=== PATIENT | female | born 1955 | race Caucasian/White ===

== ENCOUNTER 2020-06-27 13:04 | Emergency (ER) | payer OTHER ==
[2020-06-27] MEDS ORDERED: Sodium Chloride 0.9% 2.5 ML Syringe FLUSH PRN (13:43)
[2020-06-27] MEDS ORDERED: Sodium Chloride 0.9% 10 ML Syringe FLUSH PRN (13:43)
--- NOTE | 2020-06-27 13:47 | EDM.PDOC ---
ED HPI GENERAL MEDICAL PROBLEM - General Chief Complaint: Respiratory Problem Stated Complaint: SICK COUGHING SOB HEADACHES Time Seen by Provider: 06/27/20 13:23 - History of Present Illness INITIAL COMMENTS - FREE TEXT/NARRATIVE: 64-year-old female history of CABG in the past presenting with 1 week of myalgias fatigue cough shortness of breath and diarrhea. Symptoms are constant and stable without alleviating factors radiation or associated symptoms. denies pain Pain Score (Numeric/FACES): 0 - Related Data Allergies Allergy/AdvReac Type Severity Reaction Status Date / Time No Known Allergies Allergy Verified 06/27/20 13:48 Home Meds: Home Meds Metoprolol Succinate [Toprol XL] 12.5 tab PO BID 06/27/20 [History] atorvaSTATin [Lipitor] 20 PO DAILY 06/27/20 [History] ED ROS GENERAL - Review of Systems Review Of Systems: See Below Free Text/Narrative/Comment: General: Per HPI Skin: No rash. Eyes: No vision problems. ENT: No sore throat. Neck: No neck stiffness. Respiratory: Per HPI Cardiac: No chest pain. Gastrointestinal: Per HPI. Urinary: No dysuria. Musculoskeletal: No myalgias/arthralgias. Neurologic: No headache. ED EXAM, GENERAL - Physical Exam Exam: See Below Free Text/Narrative:: General Appearance: No acute distress, appears comfortable Skin: No rash HEENT: Normocephalic/atraumatic, sclera anicteric, mucous membranes moist Neck: Normal range of motion Chest and Lungs: Bilateral breath sounds, clear to auscultation with normal breathing, expiratory wheezing with coughing Cardiovascular: Regular rate and rhythm, no murmur Abdomen: Soft, non-tender Back: Normal Musculoskeletal: No edema or tenderness Neurologic: Awake, alert, no obvious deficits, moving all extremities Psychiatric: Appropriate, cooperative #1 Interpretation EKG Date: 06/27/20 Time: 15:00 EKG Interpretation Comments: Sinus rhythm with a rate of 68 diffuse T wave flattening no ST elevation depression or elevation no clear findings of acute ischemia. QTC prolonged at 660 Course - Vital Signs Last Recorded V/S: Last Vital Signs Temp 97.5 F 06/27/20 13:41 Pulse 78 06/27/20 13:41 Resp 18 06/27/20 13:41 BP 131/85 06/27/20 13:41 Pulse Ox 95 06/27/20 13:41 - Orders/Labs/Meds Orders: Active Orders 24 hr Category Date Time Status EKG Documentation Completion [RC] STAT Care 06/27/20 13:44 Active Sodium Chloride 0.9% [Saline Flush] Med 06/27/20 13:43 Active 10 ml FLUSH ASDIRECTED PRN Sodium Chloride 0.9% [Saline Flush] Med 06/27/20 13:43 Active 2.5 ml FLUSH ASDIRECTED PRN Saline Lock Insert [OM.PC] Stat Oth 06/27/20 13:43 Ordered Medication Orders Sodium Chloride (Sodium Chloride 0.9% 10 Ml Syringe) 10 ml FLUSH ASDIRECTED PRN PRN Reason: Keep Vein Open Sodium Chloride (Sodium Chloride 0.9% 2.5 Ml Syringe) 2.5 ml FLUSH ASDIRECTED PRN PRN Reason: Keep Vein Open Labs: Laboratory Tests 06/27/20 06/27/20 06/27/20 Range/Units 15:21 16:14 16:14 WBC 7.63 (4.0-11.0) K/uL RBC 4.39 (4.30-5.90) M/uL Hgb 13.7 (12.0-16.0) g/dL Hct 40.7 (36.0-46.0) % MCV 92.7 (80.0-98.0) fL MCH 31.2 (27.0-32.0) pg MCHC 33.7 (31.0-37.0) g/dL RDW Std Deviation 43.9 (28.0-62.0) fl RDW Coeff of Elvira 13 (11.0-15.0) % Plt Count 321 (150-400) K/uL MPV 9.90 (7.40-12.00) fL Neut % (Auto) 63.6 (48.0-80.0) % Lymph % (Auto) 27.0 (16.0-40.0) % [place] % (Auto) 8.9 (0.0-15.0) % Eos % (Auto) 0.4 (0.0-7.0) % Baso % (Auto) 0.1 (0.0-1.5) % Neut # (Auto) 4.9 (1.4-5.7) K/uL Lymph # (Auto) 2.1 (0.6-2.4) K/uL [place] # (Auto) 0.7 (0.0-0.8) K/uL Eos # (Auto) 0.0 (0.0-0.7) K/uL Baso # (Auto) 0.0 (0.0-0.1) K/uL Nucleated RBC % 0.0 /100WBC Nucleated RBCs # 0 K/uL Sodium 141 (136-145) mmol/L Potassium 3.7 (3.5-5.1) mmol/L Chloride 102 (98-107) mmol/L Carbon Dioxide 26.7 (21.0-32.0) mmol/L BUN 12 (7.0-18.0) mg/dL Creatinine 1.0 (0.6-1.0) mg/dL Est Cr Clr Drug Dosing 41.36 mL/min Estimated GFR (MDRD) 56.0 ml/min Glucose 103 (74-106) mg/dL Calcium 9.0 (8.5-10.1) mg/dL Total Bilirubin 0.5 (0.2-1.0) mg/dL AST 25 (15-37) IU/L ALT 22 (14-63) IU/L Alkaline Phosphatase 73 (46-116) U/L Troponin I < 0.050 (0.000-0.056) ng/mL Total Protein 7.8 (6.4-8.2) g/dL Albumin 3.6 (3.4-5.0) g/dL Globulin 4.2 H (2.6-4.0) g/dL Albumin/Globulin Ratio 0.9 (0.9-1.6) Influenza Type A RNA NEGATIVE (NEGATIVE) Influenza Type B RNA NEGATIVE (NEGATIVE) SARS-CoV-2 RNA (EVERETTE) POSITIVE H (NEGATIVE) Meds: Medications Generic Name Dose Route Start Last Admin Trade Name Freq PRN Reason Stop Dose Admin Sodium Chloride 10 ml 06/27/20 13:43 Sodium Chloride 0.9% 10 Ml Syringe FLUSH ASDIRECTED PRN Keep Vein Open Sodium Chloride 2.5 ml 06/27/20 13:43 Sodium Chloride 0.9% 2.5 Ml Syringe FLUSH ASDIRECTED PRN Keep Vein Open Discontinued Medications Generic Name Dose Route Start Last Admin Trade Name Freq PRN Reason Stop Dose Admin Albuterol Confirm 06/27/20 13:50 06/27/20 14:00 Albuterol 8 Gm Inhaler Administered 06/27/20 13:51 4 puff Dose Administration 8 gm INH .STK-MED ONE Departure - Departure Time of Disposition: 17:18 Disposition: Home, Self-Care 01 Condition: Fair Clinical Impression: COVID-19 - Discharge Information *PRESCRIPTION DRUG MONITORING PROGRAM REVIEWED*: Not Applicable *COPY OF PRESCRIPTION DRUG MONITORING REPORT IN PATIENT AISHWARYA: Not Applicable Instructions: COVID-19 Frequently Asked Questions, 10 Things You Can Do to Manage Your COVID-19 Symptoms at Home - [facility] Referrals: Luis Alberto Malloy MD [Primary Care Provider] - 1 Week Forms: ED Department Discharge Additional Instructions: If your shortness of breath worsen significantly please return to the hospital. If you would like to be considered for the antibody infusion you should go to the respiratory clinic when they open on Tuesday. Because the infusion must be given within 10 days of symptom onset Tuesday would be the latest day that you could obtain it. As we discussed it lowers the risk of severe disease but it is not a magic bullet. Please be sure to quarantine yourself for the next 7 days for first long as you have symptoms which ever is longer. The following in formation is given to patients seen in the emergency department who are being discharged to home. This information is to outline your options for follow-up care. We provide all patients seen in our emergency department with a follow-up referral. The need for follow-up, as well as the timing and circumstances, are variable depending upon the specifics of your emergency department visit. If you don't have a primary care physician on staff, we will provide you with a referral. We always advise you to contact your personal physician following an emergency department visit to inform them of the circumstance of the visit and for follow-up with them and/or the need for any referrals to a consulting specialist. The emergency department will also refer you to a specialist when appropriate. This referral assures that you have the opportunity for follow-up care with a specialist. All of these measure are taken in an effort to provide you with optimal care, which includes your follow-up. Under all circumstances we always encourage you to contact your private physician who remains a resource for coordinating your care. When calling for follow-up care, please make the office aware that this follow-up is from your recent emergency room visit. If for any reason you are refused follow-up, please contact the [facility] Emergency Department at and asked to speak to the emergency department charge nurse. Sepsis Event Note (ED) - Focused Exam Vital Signs: Vital Signs Temp Pulse Resp BP Pulse Ox 06/27/20 13:41 97.5 F 78 18 131/85 95 - My Orders Last 24 Hours: My Active Orders 06/27/20 13:43 Sodium Chloride 0.9% [Saline Flush] 10 ml FLUSH ASDIRECTED PRN Sodium Chloride 0.9% [Saline Flush] 2.5 ml FLUSH ASDIRECTED PRN Saline Lock Insert [OM.PC] Stat 06/27/20 13:44 EKG Documentation Completion [RC] STAT - Assessment/Plan Last 24 Hours: My Active Orders 06/27/20 13:43 Sodium Chloride 0.9% [Saline Flush] 10 ml FLUSH ASDIRECTED PRN Sodium Chloride 0.9% [Saline Flush] 2.5 ml FLUSH ASDIRECTED PRN Saline Lock Insert [OM.PC] Stat 06/27/20 13:44 EKG Documentation Completion [RC] STAT Assessment:: 64-year-old female presenting signs symptoms consistent with COVID-19 infection bacterial pneumonia considered as well primary her process felt less likely. EKG labs Covid swab chest x-ray pending. Will trial 4 puffs of albuterol. 1715: Labs are relatively unremarkable with the exception of the patient is Covid positive as expected chest x-ray also demonstrates Covid-like changes. Patient's oxygen has remained above 90 she has no indication for admission at this time. We did discuss the Regeneron infusion. Patient is unsure at this time and would like to talk to her about it. We did discuss that if she is to get it she must get Tuesday that would be her 10th day of illness. Patient expressed understanding. Return precautions discussed and started as well.
[2020-06-27] MEDS ORDERED: Albuterol 8 GM Inhaler INH ONE (13:50)
--- NOTE | 2020-06-27 15:11 | CR ---
INDICATION: Shortness breath. TECHNIQUE: Portable AP chest radiograph. COMPARISON: None available. FINDINGS: Low lung volumes. Mild-moderate widespread heterogeneous opacities with areas of vascular indistinctness. No pneumothorax or sizable pleural effusion. Mild cardiomegaly status post median sternotomy. Mild thoracic aortic tortuosity. IMPRESSION: Mild-moderate widespread pulmonary opacities are favored to represent pulmonary edema. Notably, atypical infection such is COVID-19 may have a similar imaging appearance and is also possible. Dictated by Elio Odom MD @ 06/27/2020 3:10:50 PM Dictated by: Elio Odom MD @ 06/27/2020 15:11:01 (Electronically Signed)
[2020-06-27 16:09] LABS: CORONAVIRUS COVID-19 NAA POSITIVE (NEGATIVE); INFLUENZA A NAA NEGATIVE (NEGATIVE); INFLUENZA B NAA NEGATIVE (NEGATIVE)
[2020-06-27 16:55] LABS: BLOOD UREA NITROGEN,BUN 12 mg/dL (7.0-18.0); CARBON DIOXIDE,CO2 26.7 mmol/L (21.0-32.0); CHLORIDE,CL 102 mmol/L (98-107); GLUCOSE RANDOM 103 mg/dL (74-106); POTASSIUM,K 3.7 mmol/L (3.5-5.1); SODIUM,NA 141 mmol/L (136-145)
== END 2020-06-27 17:32 | disposition home or self-care (01) ==
LOC: MW.ED 13:04
DX: U07.1 COVID-19 (principal); Z79.899 Other long term (current) drug therapy
CPT/HCPCS: 0240U; 36415; 71045; 80053; 84484; 85025; 93005; 99285; A9270; 93010; 99284

== ENCOUNTER 2022-11-19 07:15 | Day surgery (SDC) | payer MEDICARE, OTHER ==
[~2022-11-19 07:15] MED LIST: Lactated Ringers 1,000 ML IV SCH; Sodium Chloride 0.9% 10 ML Syringe FLUSH PRN; Sodium Chloride 0.9% 2.5 ML Syringe FLUSH PRN; Sodium Chloride 0.9% 20 ML SDV IV PRN
[2022-11-19] MEDS ORDERED: Lidocaine 2% 5 ML SDV ONE (08:46)
[2022-11-19] MEDS ORDERED: Propofol 200 MG/20 ML SDV ONE ×2 (08:47→09:25)
== END 2022-11-19 10:40 | disposition home or self-care (01) ==
LOC: MW.SDS 07:15
PROVIDERS: ATTEND Surgery
DX: Z12.11 Encounter for screening for malignant neoplasm of colon (principal); D12.2 Benign neoplasm of ascending colon; D12.3 Benign neoplasm of transverse colon; D12.4 Benign neoplasm of descending colon; K57.30 Diverticulosis of large intestine without perforation or abscess without bleeding; K64.1 Second degree hemorrhoids; K63.5 Polyp of colon; I25.10 Atherosclerotic heart disease of native coronary artery without angina pectoris; Z90.710 Acquired absence of both cervix and uterus; Z79.82 Long term (current) use of aspirin; Z88.5 Allergy status to narcotic agent; Z79.899 Other long term (current) drug therapy
CPT/HCPCS: 45380; 45385; J2704; J7120; 00811; J3490

== ENCOUNTER 2024-04-18 18:43 | Emergency (ER) | payer MEDICARE, OTHER ==
[2024-04-18] MEDS: Ibuprofen 600 MG Tab PO ONE (19:09)
[2024-04-18] MEDS: Acetaminophen 500 MG Tab PO ONE (19:11)
[2024-04-18] MEDS: Dexamethasone 4 MG Tab PO ONE (19:11)
== END 2024-04-18 20:56 | disposition home or self-care (01) ==
LOC: MW.ED 18:43
DX: M25.512 Pain in left shoulder (principal); I25.10 Atherosclerotic heart disease of native coronary artery without angina pectoris; I25.2 Old myocardial infarction; Z75.8 Other problems related to medical facilities and other health care; Z79.899 Other long term (current) drug therapy; Z88.5 Allergy status to narcotic agent; Z79.82 Long term (current) use of aspirin
CPT/HCPCS: 73030; 99283; A9270; J8540

== ENCOUNTER 2024-05-03 11:42 | Emergency (ER) | payer MEDICARE ==
[2024-05-03] MEDS ORDERED: Lidocaine 4% Patch TOP PRN (12:34)
[2024-05-03] MEDS: Cyclobenzaprine 10 MG Tab PO ONE (13:06)
[2024-05-03] MEDS: Acetaminophen 325 MG Tab PO ONE (13:06)
[2024-05-03 14:38] LABS: BASOPHILS ABSOLUTE AUTO 0.04 K/uL (0.00-0.20); BASOPHILS PERCENT AUTO 0.4 % (0.0-1.0); EOSINOPHILS ABSOLUTE AUTO 0.31 K/uL (0.00-0.45); HEMATOCRIT 40.2 % (37.0-47.0); HEMOGLOBIN 13.6 g/dL (12.0-16.0); IMMATURE GRAN ABSOLUTE AUTO 0.01 K/uL (0.00-0.05); IMMATURE GRAN PERCENT AUTO 0.1 % (0.0-0.4); LYMPHOCYTES ABSOLUTE AUTO 3.04 K/uL (1.00-4.80); LYMPHOCYTES PERCENT AUTO 29.4 % (24.0-44.0); MEAN CORPUSCULAR HEMOGLOBIN 31.4 pg (28.0-32.0); MEAN CORPUSCULAR HGB CONC 33.8 g/dL (32.0-36.0); MEAN CORPUSCULAR VOLUME 92.8 fL (83.0-99.0); MEAN PLATELET VOLUME 9.3 fL (9.4-12.3); MONOCYTES ABSOLUTE AUTO 0.59 K/uL (0.00-0.80); MONOCYTES PERCENT AUTO 5.7 % (0.0-8.0); NEUTROPHILS ABSOLUTE AUTO 6.35 K/uL (1.80-7.70); NEUTROPHILS PERCENT AUTO 61.4 % (41.0-71.0); PLATELET COUNT,PLT 345 K/uL (150-400); RED BLOOD CELL COUNT 4.33 M/uL (4.10-5.30); WHITE BLOOD CELL COUNT,WBC 10.34 K/uL (3.9-11.3)
[2024-05-03 15:07] LABS: MAGNESIUM 1.9 mg/dL (1.8-2.4)
[2024-05-03] MEDS: Diazepam 2 MG Tab PO ONE (15:19)
[2024-05-03] MEDS: Ketorolac 30 MG/ML SDV IM ONE (15:43)
[2024-05-03 16:36] LABS: CALCIUM 9.7 mg/dL (8.5-10.1); CARBON DIOXIDE,CO2 25.7 mmol/L (21.0-32.0); CREATININE 0.9 mg/dL (0.6-1.0); EST CRCL DRUG DOSING (CG) 43.57 mL/min
== END 2024-05-03 17:07 | disposition home or self-care (01) ==
LOC: MW.ED 11:42
DX: M62.838 Other muscle spasm (principal); Z88.5 Allergy status to narcotic agent; Z79.82 Long term (current) use of aspirin; Z79.899 Other long term (current) drug therapy
CPT/HCPCS: 36415; 71046; 80048; 83735; 84484; 85025; 93005; 96372; 99284; A9270; J1885